=== PATIENT | male | born 1985 | race African-American/Black ===

== ENCOUNTER 2024-04-02 17:29 | Emergency (ER) | payer OTHER ==
[~2024-04-02] VITALS: Ht 182.9 cm; Wt 65.9 kg
[~2024-04-02 17:29] MED LIST: AMOXICILLIN 8751 TAB PO; DOXYCYCLINE 10100 MG PO; FLAGYL500 MG PO
[2024-04-02 17:37] VITALS: TEMP 97.9
[2024-04-02] MEDS ORDERED: metroNIDAZOLE 250 MG TAB PO ONE (18:30)
[2024-04-02] MEDS ORDERED: Doxycycline Monohydrate 100 MG CAP PO ONE (18:30)
[2024-04-02 19:13] LABS: BASO % 0.4 % (0.0-2.0); EOS # 0.1 K/mm3 (0.0-0.7); EOS % 1.9 % (0.0-4.0); GRAN # 3.9 K/mm3 (1.4-6.5); GRAN % 55.8 % (42.2-75.2); HEMATOCRIT 40.8 % (42.0-52.0); HEMOGLOBIN 13.5 g/dl (13.5-18.0); LYMPH # 2.2 K/mm3 (1.2-3.4); LYMPH % 32.1 % (20.0-51.0); MEAN CELL VOLUME 98 fl (80.0-100.0); MEAN CORPUSCULAR HEMOGLOBIN 32 pg (27-31); MEAN CORPUSCULAR HGB CONC 33 g/dl (33.0-37.0); MEAN PLATELET VOLUME 9.1 fl (7.4-10.4); MONO # 0.7 K/mm3 (0.1-0.6); MONO % 9.7 % (1.7-9.3); PLATELET COUNT 253 K/mm3 (130-400); RED BLOOD COUNT 4.17 M/mm3 (4.20-5.60)
[2024-04-02 19:31] LABS: ALBUMIN 3.2 g/dL (3.5-5.0); C-REACTIVE PROTEIN 0.92 mg/dL (0.00-0.50); CALCIUM 8.8 mg/dL (8.4-10.2); CREATININE, serum 0.78 mg/dL (0.72-1.25); POTASSIUM 3.5 mEq/L (3.5-4.5); TOTAL PROTEIN 6.9 g/dl (6.2-8.1)
[2024-04-02 19:47] LABS: BILIRUBIN,TOTAL 0.3 mg/dL (0.2-1.2)
[2024-04-02 20:53] VITALS: BP 131/84; PULSE 73
== END 2024-04-02 20:53 | disposition home or self-care (01) ==
LOC: COL.ER 17:29
PROVIDERS: Nurse Practitioner
DX: S61.452A Open bite of left hand, initial encounter (principal); L08.9 Local infection of the skin and subcutaneous tissue, unspecified; F17.290 Nicotine dependence, other tobacco product, uncomplicated; Z88.0 Allergy status to penicillin; Z91.040 Latex allergy status; Z88.1 Allergy status to other antibiotic agents; W54.0XXA Bitten by dog, initial encounter